=== PATIENT | male | born 1970 | race Caucasian/White ===

== ENCOUNTER 2022-11-30 14:10 | Emergency (ER) | payer OTHER, BC ==
[~2022-11-30] VITALS: Ht 170.2 cm; Wt 78.0 kg
--- NOTE | 2022-11-30 14:15 | NUR ---
DR. CABRAL AT BEDSIDE TO ASSESS PT.
--- NOTE | 2022-11-30 14:15 | NUR ---
PT BIB WITH C/O C/P. NORMAL S1S2 NOTED. ON R/A. STATES PAIN 03/29. AT BEDSIDE. SIDERAILS UP X2.
--- NOTE | 2022-11-30 14:16 | NUR ---
DR. MULLEN AT BEDSIDE TO ASSESS PT.
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
[2022-11-30 14:36] VITALS: BP_SYST 124
[2022-11-30] MEDS ORDERED: ASPIRIN 81 MG TAB.CHEW PO ONE (14:45)
[2022-11-30] MEDS ORDERED: KETOROLAC TROMETHAMINE 30 MG VIAL IVP ONE (14:45)
--- NOTE | 2022-11-30 15:10 | NUR ---
SCHEDULED MEDS GIVEN AND TOLERATED WELL.
[2022-11-30 15:21] LABS: BASOPHILS % (AUTO) 0.6 % (0.0-2.0); EOSINOPHILS # (AUTO) 0.2 K/uL (0.0-0.4); EOSINOPHILS % (AUTO) 4.4 % (0.0-4.0); HEMATOCRIT 44.1 % (36-54); HEMOGLOBIN 14.8 g/dL (14.0-18.0); LYMPHOCYTES # (AUTO) 1.2 K/uL (1.0-5.5); LYMPHOCYTES % (AUTO) 21.3 % (20.5-51.5); MEAN CORPUSCULAR HEMOGLOBIN 30 pg (27-31); MEAN CORPUSCULAR HGB CONC 34 % (32-36); MEAN CORPUSCULAR VOLUME 90 fL (79.0-98.0); MONOCYTES # (AUTO) 0.6 K/uL (0.0-1.0); MONOCYTES % (AUTO) 10.7 % (1.7-9.3); NEUTROPHILS # (AUTO) 3.5 K/uL (1.8-7.7); PLATELET COUNT (AUTO) 173 K/uL (130-430); RED BLOOD CELL COUNT(AUTO) 4.88 MIL/uL (4.2-6.2); RED CELL DISTRIBUTION WIDTH 13.2 % (9.0-15.0); WHITE BLOOD COUNT (AUTO) 5.5 K/uL (4.8-10.8)
[2022-11-30 15:41] LABS: ANION GAP 10 (5-15); CALCIUM 8.5 mg/dL (8.4-11.0); CHLORIDE 105 mmol/L (98-107); CREATININE 0.74 mg/dL (0.55-1.30); GLUCOSE 98 mg/dL (70-99); UREA NITROGEN, BLOOD 14 mg/dL (8-21)
[2022-11-30 15:48] LABS: ALANINE AMINOTRANSFERASE 33 U/L (12-78); ALBUMIN 3.7 g/dL (3.4-4.8); ASPARTATE AMINOTRANSFERASE 24 U/L (10-37); TOTAL BILIRUBIN 0.4 mg/dL (0.0-1.0)
[2022-11-30 15:56] LABS: GFR AFRICAN AMERICAN 142 mL/min (>90)
--- NOTE | 2022-11-30 16:47 | NUR ---
DR. MULLEN AT BEDSIDE TO DISCUSS POC.
[2022-11-30] MEDS ORDERED: IBUP-1971 PO (17:22)
[2022-11-30 19:31] VITALS: BP_SYST 148
== END 2022-11-30 19:29 | disposition home or self-care (01) ==
LOC: SED 14:10
DX: S20.211A Contusion of right front wall of thorax, initial encounter (principal); I10 Essential (primary) hypertension; Z79.899 Other long term (current) drug therapy; Z20.822 Contact with and (suspected) exposure to COVID-19; V49.40XA Driver injured in collision with unspecified motor vehicles in traffic accident, initial encounter; Y93.89 Activity, other specified; Y92.89 Other specified places as the place of occurrence of the external cause; Y99.8 Other external cause status
CPT/HCPCS: 99285; 96374; 71045; 87426; 80053; 83880; 85025; 84484; 36415; 93005; 87804 ×2; J1885